=== PATIENT | male | born 1980 | race Caucasian/White ===

== ENCOUNTER 2021-10-19 08:21 | Emergency (ER) | payer BC, SELFPAY ==
[2021-10-19 08:23] VITALS: BP 156/86; PULSE 95; RESP 17; TEMP 36.4; O2SAT 99
--- NOTE | 2021-10-19 08:42 | ED.SKABFB ---
HPI - Skin/Abscess/Foreign Bdy General Chief complaint: Skin/Abscess/Foreign Body Stated complaint: RLE cellulitis ? Time Seen by Provider: 10/19/21 08:29 Source: patient Mode of arrival: ambulatory Limitations: no limitations History of Present Illness HPI narrative: Patient is a 40-year-old male complaining of redness on his right khan area that started yesterday but states that it looks better today. Patient states that he had a small abscess that he popped few days ago right below his right knee, and yesterday noticed redness around it. Patient denies any fever or chills. Patient denies any calf pain or tenderness. Related Data Allergies Allergy/AdvReac Type Severity Reaction Status Date / Time Sulfa (Sulfonamide Allergy Unknown Hives Verified 10/19/21 08:25 Antibiotics) sulfanilamide Allergy Unknown Hives Verified 10/19/21 08:25 Review of Systems Review of Systems: Per HPI All systems reviewed & are unremarkable except as noted in HPI and below PMFSH Family History Family History (Updated 11/08/11 @ 10:56 by DOCTOR UNKNOWN) Other Family history of Hodgkin's lymphoma Hypertension Social History Social History Smoking status: Never smoker Alcohol intake: current Comments Past medical history: None Exam Const: General: no acute distress and alert Orientation/consciousness: patient oriented x3 HENMT: Head: normal to inspection Eyes: Conjunctivae: conjunctivae normal Resp: Effort & Inspection: normal respiratory effort Skin: Other: Mildly erythematous, nontender, nonfluctuant, warm area anterior leg Course Vital Signs Vital signs: Vital Signs Temperature 36.4 C L 10/19/21 08:23 Pulse Rate 95 10/19/21 08:23 Respiratory Rate 17 10/19/21 08:23 Blood Pressure 156/86 H 10/19/21 08:23 Pulse Oximetry 99 10/19/21 08:23 Temperature 36.4 C L 10/19/21 08:23 Pulse Rate 95 10/19/21 08:23 Respiratory Rate 17 10/19/21 08:23 Blood Pressure 156/86 H 10/19/21 08:23 Pulse Oximetry 99 10/19/21 08:23 Discharge Plan Discharge Clinical Impression: Cellulitis Qualifiers: Site of cellulitis: extremity Site of cellulitis of extremity: lower extremity Laterality: right Qualified Code(s): L03.115 - Cellulitis of right lower limb Patient Disposition: Home, Self-Care Condition: Stable Instructions: Cellulitis (ED) Prescriptions: New doxycycline monohydrate 100 mg capsule 100 mg PO BID 7 Days Qty: 14 RF: 0 Follow-up/Referrals: Trey Stein MD [Primary Care Provider] - 10/24/21 Time of Disposition: 08:46
== END 2021-10-19 08:49 | disposition home or self-care (01) ==
PROVIDERS: Emergency Provider Emergency Medicine; PCP Family Medicine
DX: L03.115 Cellulitis of right lower limb (principal)
CPT/HCPCS: 99283

== ENCOUNTER → 2021-10-31 15:46 | Outpatient (CLI) | payer BC, SELFPAY ==
--- NOTE | ~2021-10-31 | XR_ITS ---
EXAMINATION: XR knee RT min 4V DATE: 10/31/2021 16:10 INDICATION: Right knee pain. TECHNIQUE: 4 views of right knee including standing views were obtained. COMPARISON: None. FINDINGS: Bone alignment is normal. No fracture. There is mild osteoarthritis of lateral and patellof emoral compartments characterized by tiny osteophytes. No joint space narrowing. There is a small kne e joint effusion. There is a 9 mm loose body in the anterior intercondylar notch. IMPRESSION: 1. Mild right knee osteoarthritis. 2. Small knee joint effusion with loose body. Reviewed, dictated and finalized at location A.
== END ==
PROVIDERS: PCP Family Medicine; Visit Provider Nurse Practitioner Family
DX: M17.11 Unilateral primary osteoarthritis, right knee (principal); M25.461 Effusion, right knee
CPT/HCPCS: 73564